=== PATIENT | female | born 1995 | race Caucasian/White ===

== ENCOUNTER 2017-06-06 14:28 | Emergency (ER) | payer OTHER ==
[~2017-06-06] VITALS: Ht 165.1 cm; Wt 68.4 kg
[~2017-06-06 14:28] MED LIST: BACTRIM,SEPT1 TABLET PO; BUSPAR10 MG PO; EFFEXOR75 MG PO; FLEXERIL10 MG PO; HYCODAN SYRUP480 ML PO; HYDROCODON-ACE1 EAC7 PO; JUNEL1 EAC1 PO; MOTRIN IB200 MG PO; PROMETHAZINE HC25 M1 PO; VENLAFAXINE HCL75 M3 PO; ZOFRAN ODT4 MG PO
[2017-06-06] MEDS ORDERED: ZOFRAN4 MG PO (16:43)
[2017-06-06] MEDS ORDERED: MOTRIN600 MG PO (16:43)
[2017-06-06] MEDS ORDERED: TESSALON200 MG PO (16:43)
[2017-06-06 17:35] VITALS: BP 112/90
== END 2017-06-06 17:36 | disposition home or self-care (01) ==
LOC: EME 14:28
DX: J11.1 Influenza due to unidentified influenza virus with other respiratory manifestations (principal)
CPT/HCPCS: 93005; 99281; 99283